=== PATIENT | male | born 1985 ===

== ENCOUNTER 2020-02-29 17:13 | Emergency (ER) | payer MEDICAID ==
[~2020-02-29] VITALS: Ht 170.2 cm; Wt 59.1 kg
[2020-02-29 17:15] VITALS: BP 133/71
== END 2020-02-29 17:39 | disposition home or self-care (01) ==
LOC: ER 17:14
DX: S20.211A Contusion of right front wall of thorax, initial encounter (principal); F10.129 Alcohol abuse with intoxication, unspecified; X58.XXXA Exposure to other specified factors, initial encounter; Y93.89 Activity, other specified; Y92.89 Other specified places as the place of occurrence of the external cause; Y99.8 Other external cause status; Y90.9 Presence of alcohol in blood, level not specified
CPT/HCPCS: 99283